=== PATIENT | male | born 1990 | race Two or more races ===

== ENCOUNTER 2022-06-03 20:36 | Inpatient (IN) | payer OTHER ==
[~2022-06-03] VITALS: Ht 175.3 cm; Wt 80.3 kg
[2022-06-03 21:34] LABS: BASOPHILS % (AUTO) 0.6 % (0.0-2.0); EOSINOPHILS % (AUTO) 0.3 % (1.0-6.0); HEMATOCRIT 46.3 % (41-53); HEMOGLOBIN 15.4 g/dL (13.5-17.5); LYMPHOCYTES # (AUTO) 2.1 K/uL (1.0-4.8); LYMPHOCYTES % (AUTO) 36.7 % (22.0-44.0); MEAN CORPUSCULAR HEMOGLOBIN 29.4 pg (26.0-34.0); MEAN CORPUSCULAR HGB CONC 33.3 G/dL (31.0-37.0); MEAN CORPUSCULAR VOLUME 88 fL (80-100); MONOCYTES # (AUTO) 0.5 K/uL (0.1-1.0); MONOCYTES % (AUTO) 8.2 % (2.0-9.0); NEUTROPHILS # (AUTO) 3.1 K/uL (1.8-7.7); NEUTROPHILS % (AUTO) 54.2 % (40.0-70.0); PLATELET COUNT (AUTO) 297 K/uL (150-450); RED BLOOD CELL COUNT(AUTO) 5.26 MIL/uL (4.50-5.90); RED CELL DISTRIBUTION WIDTH 14.1 % (11.5-14.5)
[2022-06-03 21:35] LABS: COVID AG,FIA SOURCE NASOPHARYNGEAL
[2022-06-03 21:50] LABS: ANION GAP 11 mmol/L (8-16); CALCIUM, TOTAL 9.5 mg/dL (8.8-10.5); CARBON DIOXIDE 27 mmol/L (22-29); CHLORIDE 102 mmol/L (98-107); GLOMERULAR FILTR. RATE CALC > 60 mL/min (>60); GLUCOSE,RANDOM 101 mg/dL (70-110); POTASSIUM 3.8 mmol/L (3.5-5.1); SODIUM SERUM 140 mmol/L (136-145); UREA NITROGEN, BLOOD 13 mg/dL (7-18)
[2022-06-03 21:55] LABS: ALANINE AMINOTRANSFERASE 23 U/L (12-78); ALBUMIN 4.5 g/dL (3.4-5.0); ALKALINE PHOSPHATASE 74 U/L (46-116); ASPARTATE AMINOTRANSFERASE 16 U/L (15-37); BILIRUBIN,TOTAL 1.2 mg/dL (0.1-1.0); TOTAL PROTEIN, SERUM 7.7 g/dL (6.4-8.2)
[2022-06-03 22:40] VITALS: BP 119/66
[2022-06-03 22:58] LABS: AMPHET/METH SCREEN,URINE NEGATIVE (NEGATIVE); BARBITURATE SCREEN, URINE NEGATIVE (NEGATIVE); BENZODIAZEPINES SCREEN,URINE NEGATIVE (NEGATIVE); CANNABINOID SCREEN,URINE NEGATIVE (NEGATIVE); COCAINE SCREEN,URINE NEGATIVE (NEGATIVE); METHADONE SCREEN, URINE NEGATIVE (NEGATIVE); OPIATE SCREEN,URINE NEGATIVE (NEGATIVE); PHENCYCLIDINE SCREEN,URINE NEGATIVE (NEGATIVE)
[2022-06-03] MEDS ORDERED: MAGNESIUM HYDROXIDE SUSPENSION 30 ML UDCUP PO PRN (23:15)
[2022-06-03] MEDS ORDERED: ACETAMINOPHEN 325 MG TABLET PO PRN (23:15)
[2022-06-03] MEDS ORDERED: ZOLPIDEM TARTRATE 5 MG TABLET PO PRN (23:15)
[2022-06-04 04:55] VITALS: BP 133/75
[2022-06-04] MEDS ORDERED: INFLUENZA VIRUS VACCINE QVS 2022-23 (6MO+)/PF 60 MCG/0.5 ML SYRINGE IM. ONE (07:00)
[2022-06-04 08:01] VITALS: BP 116/71
[2022-06-04] MEDS ORDERED: LORazepam 1 MG TABLET PO PRN (14:15)
[2022-06-04] MEDS ORDERED: HALOPERIDOL 5 MG TABLET PO PRN ×2 (14:45→15:30)
[2022-06-04] MEDS ORDERED: LORazepam 2 MG/ML VIAL ONE (14:49)
[2022-06-04] MEDS ORDERED: HALOPERIDOL LACTATE 5 MG/ML VIAL ONE (14:50)
[2022-06-04] MEDS ORDERED: DiphenhydrAMINE HCL 50 MG/ML VIAL ONE (14:56)
[2022-06-04] MEDS ORDERED: OLANZapine 5 MG TABLET PO SCH (15:00)
[2022-06-04] MEDS ORDERED: HALOPERIDOL LACTATE 5 MG/ML VIAL IM PRN (15:15)
[2022-06-04] MEDS ORDERED: DiphenhydrAMINE HCL 50 MG/ML VIAL IM ONE (15:15)
[2022-06-04] MEDS ORDERED: LORazepam 2 MG/ML VIAL IM PRN (15:15)
[2022-06-04] MEDS: OLANZapine 5 MG TABLET PO SCH (21:00)
[2022-06-05 04:15] VITALS: BP 127/65
[2022-06-05 07:35] VITALS: BP 120/73
[2022-06-05] MEDS: OLANZapine 5 MG TABLET PO SCH ×2 (08:03→20:16)
[2022-06-05 20:20] VITALS: BP 113/74
[2022-06-06 04:48] VITALS: BP 117/63
[2022-06-06 07:34] VITALS: BP 124/75
[2022-06-06] MEDS: OLANZapine 5 MG TABLET PO SCH (08:31)
[2022-06-06] MEDS ORDERED: OLAN5TAB52 PO (12:02)
[2022-06-06 15:24] VITALS: BP 117/69
== END 2022-06-07 00:09 | DRG 885 ==
LOC: EMS 20:37 → 6S 22:47
PROVIDERS: ADMIT Internal Medicine; ATTEND Internal Medicine
DX: F29 Unspecified psychosis not due to a substance or known physiological condition (principal); Z20.822 Contact with and (suspected) exposure to COVID-19; F41.9 Anxiety disorder, unspecified; Z79.899 Other long term (current) drug therapy
CPT/HCPCS: 80053; 85025; 99285; G0480; J1200; J1630; J2060